=== PATIENT | female | born 1965 | race Caucasian/White ===

== ENCOUNTER 2020-02-16 11:27 | Emergency (ER) | payer MEDICAID, SELFPAY ==
[2020-02-16 11:35] VITALS: BP 126/83; PULSE 100; RESP 16; TEMP 36.8; O2SAT 97; BMI 39.9
--- NOTE | 2020-02-16 11:54 | XR_ITS ---
WS: [id number] LEFT SHOULDER: 3 VIEW(S) TECHNIQUE: Internal and external rotation with Y view. HISTORY: fall, shoulder pain COMPARISON: None available. No fracture or dislocation or soft tissue abnormality. Mild narrowing of the AC joint. XR/XR shoulder LT min 2V* 19782 IMPRESSION: Mild AC joint arthritis. No fracture identified.
[2020-02-16 11:55] VITALS: BP 141/81; PULSE 78; RESP 18; O2SAT 99
--- NOTE | 2020-02-16 12:53 | W.ED.EXTPRO ---
HPI - Extremity Problem General: Chief complaint: Extremity Injury, Upper Stated complaint: Shoulder Pain Time Seen by Provider: 02/16/20 11:49 History of Present Illness: HPI Narrative: 54-year-old female patient presents to the emergency department due to left shoulder pain. She reports sustained a fall last night, tripped over an object in the floor, hit the wall with her left shoulder and has experienced pain since. She reports [id number] use of ibuprofen. Has not helped with pain. She reports was able to move her left arm but with significant pain. She reports recent neck surgery, October 2019, cervical fusion, she denies neck pain upon exam. MD Complaint: joint pain (Left shoulder) Onset (ago): hour(s) (Approximately 12 hours) Pain Consistency: constant Location: left and upper extremity Severity scale (1-10): 8 Quality: aching, sharp and constant Radiation: none Relieving factors: nothing Exacerbating factors: range of motion Associated symptoms: Reports no associated symptoms; Deny chest pain, fever(s) or rash Review of Systems General: Reports: 10 or more systems reviewed and unremarkable except in HPI and below Const: Denies: fever(s), chills, body aches or diaphoresis Eyes: Denies: blurry vision or eye redness ENMT: Denies: throat pain, dental pain or disequilibrium Card: Denies: chest pain, palpitations or irregular heart rhythm Resp: Denies: dyspnea, productive cough, non-productive cough or wheezing GI: Denies: abdominal pain, nausea or vomiting : Denies: difficulty voiding or dysuria Musc: Reports: extremity pain (Left upper extremity, shoulder) and joint pain (Left upper extremity shoulder); Denies: neck pain or back pain Skin/Breast: Denies: rash or pruritus Neuro: Denies: headache(s), weakness in extremities or behavioral changes Psych: Denies: anxiety or depression Durga/Lymph: Denies: easy bruising Physical Exam Const: COMMON NORMALS: no acute distress, patient oriented x3, healthy appearing and alert GENERAL APPEARANCE: cooperative, comfortable and well hydrated HENMT: COMMON NORMALS: normocephalic, Normal external nose present and moist oral mucous membranes HEAD & SCALP: normocephalic NOSE: Normal external nose present Eye: COMMON NORMALS: Equal, round and reactive pupils present and EOMs intact bilaterally GENERAL EYE: appearance normal, both eyes and all related structures PUPIL: Yes Equal, round and reactive pupils present Neck/C-Spine: COMMON NORMALS: full ROM and no lymphadenopathy GENERAL: Yes normal visual inspection and Yes trachea midline CERVICAL SPINE: Yes cervical ROM normal (Scar noted to the right anterior neck), No Cervical spine tenderness, No Paracervical muscle tenderness and Yes Trapezius muscle tenderness left Lymph: LYMPHATIC: no lymphadenopathy noted Chest: COMMONS NORMALS: normal inspection of the chest Resp: COMMON NORMALS: normal respiratory effort and clear to auscultation bilaterally EFFORT & INSPECTION: Yes able to speak in complete sentences AUSCULTATION: clear to auscultation bilaterally Cardio: COMMON NORMALS: regular rhythm, S1 normal heart sound present, S2 normal heart sound present and Peripheral pulses 2+ throughout RHYTHM: regular rhythm HEART SOUNDS: S1 normal heart sound present and S2 normal heart sound present PERIPHERAL PULSES: Peripheral pulses 2+ throughout GI: COMMON NORMALS: Soft to palpation and non-tender INSPECTION: Yes normal to inspection PALPATION: Yes Soft to palpation : COMMON NORMALS: Yes no CVA tenderness BLADDER/KIDNEY EXAM: Yes no CVA tenderness Back/Pelvis: COMMON NORMALS: no CVA tenderness and thoracic and lumbar spine normal to inspection Extremity: COMMON NORMALS: normal to inspection and capillary refill normal GENERAL: Yes normal exam except as noted LEFT UPPER EXTREMITY: Yes shoulder joint Left shoulder joint: Yes inspection (No contusion or discoloration noted, negative edema noted.), Yes palpation (Pain to posterior acromion process, along trapezius), Yes ROM (Limited secondary to pain) and Yes neurovascular exam (Intact) LEFT LOWER EXTREMITY: Yes lower leg (Lateral contusion noted, ecchymosis, reports occurred during fall, able ambulate bilateral lower extremities without difficulty) Neuro: COMMON NORMALS: patient oriented x3 and no focal motor deficits SENSORIUM/ORIENTATION: Yes alert Psych: COMMON NORMALS: mental status grossly normal, Normal thought process present and cooperative ACTIVITY/MOTOR BEHAVIOR: Yes appropriate eye contact THOUGHT PROCESS: Normal thought process present Skin: COMMON NORMALS: no rashes or lesions noted and turgor normal GENERAL SKIN EXAM: no rashes or lesions noted and turgor normal Course ED course: 54-year-old female patient presents to the emergency department after she sustained a fall. She is complaining of left shoulder pain, left shoulder x-ray did not reveal fracture, she did not have cervical spine point tenderness, pain was localized to the posterior shoulder. Hydrocodone administered here in the ED along with Zofran due to nausea. Pain did improve, she was prescribed naproxen and arm sling, advised need to follow-up with primary care physician in 5 to 7 days if shoulder pain continued. She verbalized understanding. Vital Signs: Vital signs: Vital Signs Temperature 98.2 F 02/16/20 11:35 Pulse Rate 78 02/16/20 11:55 Respiratory Rate 18 02/16/20 11:55 Blood Pressure 141/81 02/16/20 11:55 Pulse Oximetry 99 02/16/20 11:55 MDM - Extremity (Nontraumatic) Imaging Data^: Xray Ortho: Radiologist's impression: [address] [address] XRay Report Signed Patient: Yissel Dunn Unit #: [id number] : [id number] Age/Sex: 54 / F ADM Date: 02/16/20 Loc: ER Room/Bed: Attending Dr: Ordering Provider/Ordering MD: Gerri Dobbs Date of Service: 02/16/20 Procedure(s): XR shoulder LT min 2V* [id number] Accession Number(s): [id number] Report Number: [id number] WS: [id number] LEFT SHOULDER: 3 VIEW(S) TECHNIQUE: Internal and external rotation with Y view. HISTORY: fall, shoulder pain COMPARISON: None available. No fracture or dislocation or soft tissue abnormality. Mild narrowing of the AC joint. XR/XR shoulder LT min 2V* [id number] IMPRESSION: Mild AC joint arthritis. No fracture identified. Dictated By: Hortensia Mcclellan DO Signed By: Hortensia Mcclellan DO Signed Date/Time: 02/16/201249 DD/ 49 Discharge Plan Discharge Patient Disposition: Home Clinical Impression: Fall against object Contusion of left shoulder Qualifiers: Encounter type: initial encounter Qualified Code(s): S40.012A - Contusion of left shoulder, initial encounter Condition: Stable Prescriptions: New naproxen 500 mg tablet 500 mg PO BID PRN (Reason: pain) Qty: 20 RF: 0 Discharge Orders: Discharge Order (Routine); Ordered 02/16/20 Ordered By: Gerri Dobbs Discharge Diet: Usual diet Discharge Activity: Limit activity as instructed and Return to work/school after cleared by PCP/Specialist Patient Instructions: Contusion in Adults (ED), Shoulder Sprain (ED), Sling - Wearing Activity Restrictions/Additional Instructions: Wear shoulder sling to help with left shoulder pain Take naproxen with food, do not use any jsrp-aji-[id number] medication with exception of Tylenol as needed for pain, as duplicate therapy can occur Follow-up with your primary care provider for left shoulder pain in 5 to 7 days if not improved -like cool compresses to the area to help with pain Return to the emergency department if you develop chest pain, left arm numbness and tingling, swelling of the left arm, or weakness of the upper extremities Coding Level of Care Code ED Informal Waiter/Waitress for Jorge A Fwd Exam Comprehensive
[2020-02-16] MEDS: HYDROcodone-acetaminophen 5-325 mg Tablet 1 TAB PO (13:26)
[2020-02-16] MEDS: ondansetron 4 MG Tablet PO (13:26)
[2020-02-16 13:36] VITALS: BP 136/87; PULSE 83; RESP 17; O2SAT 100
== END 2020-02-16 13:30 | disposition home or self-care (01) ==
PROVIDERS: Emergency Provider Nurse Practitioner Family
DX: S40.012A Contusion of left shoulder, initial encounter (principal); W18.09XA Striking against other object with subsequent fall, initial encounter
CPT/HCPCS: 12345; 73030; 99281; 99283; Q0162

== ENCOUNTER 2020-10-16 13:22 | Emergency (ER) | payer MEDICAID, SELFPAY ==
[2020-10-16] VITALS (8 sets, daily range): BP systolic 113–142; BP diastolic 65–86; PULSE 76–84; RESP 16–20; TEMP 36.6; O2SAT 96–99; BMI 40.3
--- NOTE | 2020-10-16 14:04 | CTR_ITS ---
PROCEDURE INFORMATION: Exam: CT Head Without Contrast Exam date and time: 10/16/2020 3:11 PM Age: 55 years old Clinical indication: Pain; Headache; Additional info: Headache x this am TECHNIQUE: Imaging protocol: Computed tomography of the head without contrast. Axial, coronal and sagittal reformatted images were created and reviewed. Radiation optimization: All CT scans at this facility use at least one of these dose optimization techniques: automated exposure control; mA and/or kV adjustment per patient size (includes targeted exams where dose is matched to clinical indication); or iterative reconstruction. COMPARISON: No relevant prior studies available. RADIATION DOSE METRICS: Total DLP (mGy-cm): 949.9 FINDINGS: Brain: No CT evidence of acute intracranial hemorrhage or acute territorial infarction. No significant mass effect or midline shift. Basal cisterns patent. Cerebral ventricles: Normal in size and configuration. Paranasal sinuses: Minimal ethmoid mucosal thickening. Mastoid air cells: Grossly unremarkable. Bones/joints: No acute osseous abnormality. Soft tissues: Grossly unremarkable. CT/CT head wo con* [id number]: 1[address] No CT evidence of acute intracranial pathology. 2. Additional findings, as above. Radiation Dose CTDIVOL = (mGy): DLP = 949.9 (mGy-cm)
--- NOTE | 2020-10-16 14:04 | ED_ITS ---
HPI - Neuro Symptoms/Deficit General: Chief Complaint: Neuro Symptoms/Deficit Stated Complaint: NEURO SYMPTOMS:FACE/R EYE SWELLING,NAUSEA Time Seen by Provider: 10/16/20 14:01 History of Present Illness: HPI Narrative: This patient is a 55-year-old female who presents to the emergency department for profound dizziness. Patient has a history of dizziness and had to have neck surgery for the same. Patient had a pinched nerve in her neck causing the balance issues. Patient states that was sometime ago and has not really had much issues over that other than some mild dizziness from time to time. States this morning on waking having profound dizziness and issues with the right I like it she had a pulling. Patient states has never been this bad before. Will do medical evaluation treat as needed otherwise patient has no other neurological symptoms. Associated symptoms: Reports vertigo; Deny chest pain, headache(s), nausea or vomiting Review of Systems General: Reports: 10 or more systems reviewed and unremarkable except in HPI and below Const: Denies: fever(s), chills, body aches or fatigue Eyes: Denies: change in vision or blurry vision ENMT: Denies: throat pain, hoarseness or mouth pain Card: Denies: chest pain, palpitations, irregular heart rhythm, edema, swelling of feet/ankles or lightheadedness Resp: Denies: dyspnea, productive cough, non-productive cough, wheezing or pain on inspiration GI: Denies: abdominal pain, nausea or vomiting : Denies: flank pain, difficulty voiding, dysuria, urinary frequency, urinary urgency or urinary hesitancy Musc: Denies: neck pain, back pain, extremity pain, extremity swelling, joint pain, joint swelling, joint redness, joint warmth or limited range of motion Skin/Breast: Denies: rash, pruritus, erythema or skin tenderness Neuro: Reports: dizziness and vertigo; Denies: headache(s), numbness in extremities or weakness in extremities Psych: Denies: anxiety or depression Physical Exam Const: COMMON NORMALS: no acute distress, average body habitus, patient oriented x3, no limitations, healthy appearing, alert and well nourished ORIENTATION/CONSCIOUSNESS: Yes oriented to person, Yes oriented to place and Yes oriented to time HENMT: COMMON NORMALS: normocephalic, atraumatic, hearing grossly normal bilaterally, external ears normal, EAC's normal, TM's normal bilaterally, Normal external nose present, Normal nasal mucous membranes and turbinates present, moist oral mucous membranes, oropharynx normal, dentition normal and gingiva normal HEAD & SCALP: normocephalic and atraumatic NOSE: Normal external nose present and Normal nasal mucous membranes and turbinates present EXTERNAL EAR: Yes external ears normal EXTERNAL AUDITORY CANAL: EAC's normal TYMPANIC MEMBRANE: TM's normal bilaterally Neck/C-Spine: COMMON NORMALS: full ROM, no lymphadenopathy, supple, no meningeal signs, no JVD, Thyroid normal and No carotid bruits THYROID: Thyroid normal Chest: COMMONS NORMALS: normal inspection of the chest, normal palpation of entire chest wall, normal inspection of the breasts and normal palpation of the breasts Breast/axilla inspection: Yes normal inspection of the breasts BREAST/AXILLA PALPATION: Yes normal palpation of the breasts Resp: COMMON NORMALS: normal respiratory effort, No retractions, No use of accessory muscles, clear to auscultation bilaterally and percussion normal AUSCULTATION: clear to auscultation bilaterally PERCUSSION: percussion normal Cardio: COMMON NORMALS: no JVD, regular rate, regular rhythm, S1 normal heart sound present, S2 normal heart sound present, No gallops present (Cardio), No clicks present (Cardio), No murmurs present (Cardio), No rub (Cardio) and Peripheral pulses 2+ throughout RATE: regular rate RHYTHM: regular rhythm HEART SOUNDS: S1 normal heart sound present and S2 normal heart sound present PERIPHERAL PULSES: Peripheral pulses 2+ throughout GI: COMMON NORMALS: Normal to inspection, nondistended, normoactive bowel sounds present, Soft to palpation, non-tender, No hepatosplenomegaly present, no masses and no bruits PALPATION: Yes Soft to palpation and Yes No hepatosplenomegaly present : COMMON NORMALS: Yes no CVA tenderness BLADDER/KIDNEY EXAM: Yes no CVA tenderness Back/Pelvis: COMMON NORMALS: no CVA tenderness, thoracic and lumbar spine normal to inspection, no thoracic nor lumbar tenderness, thoraco-lumbar ROM normal and straight leg raise negative bilaterally Extremity: COMMON NORMALS: normal to inspection, full ROM, capillary refill normal, no joint enlargement, no clubbing, cyanosis or edema, no calf tenderness and no pedal edema Neuro: COMMON NORMALS: patient oriented x3 SENSORIUM/ORIENTATION: Yes aler t, Yes oriented to person, Yes oriented to place and Yes oriented to time MENINGEAL SIGNS: Yes no meningeal signs CRANIAL NERVES: Yes CN normal except as noted COORDINATION/BALANCE: sgetvy-iz-koum test normal SPEECH: speech normal GAIT: Yes Normal gait present SENSORY EXAM: Yes extremities COORDINATION: [id number]-qs-[id number] test normal Course Reevaluation(s): Reevaluation #1: Patient states dizziness is much improved. We did discuss at length with patient about CT scanner being down. Patient request to wait and requested to have a CT scan of her head. We will continue to monitor the patient Time: 16:04 Vital Signs: Vital signs: Vital Signs Temperature 97.9 F 10/16/20 13:47 Pulse Rate 81 10/16/20 16:43 Respiratory Rate 20 H 10/16/20 16:43 Blood Pressure 131/79 10/16/20 16:43 Pulse Oximetry 99 10/16/20 16:43 MDM - Neuro Symptoms/Deficit MDM Narrative: Medical decision making narrative: Negative evaluation in the emergency department. CT scans negative. Patient does have chronic vertigo and does take meclizine at home per her neurologist. Patient requested CT scans and they were negative. Patient meclizine given in the ER and has much improved her symptoms. Patient is discharged home Imaging Data^: CT Head: Attestation: I personally reviewed and interpreted this imaging study as follows: Radiologist's impression: FINDINGS: Brain: No CT evidence of acute intracranial hemorrhage or acute territorial infarction. No significant mass effect or midline shift. Basal cisterns patent. Cerebral ventricles: Normal in size and configuration. Paranasal sinuses: Minimal ethmoid mucosal thickening. Mastoid air cells: Grossly unremarkable. Bones/joints: No acute osseous abnormality. Soft tissues: Grossly unremarkable. CT/CT head wo con* [id number] IMPRESSION: 1. No CT evidence of acute intracranial pathology. 2. Additional findings, as above. Discharge Plan Discharge Condition: Stable Prescriptions: New meclizine 25 mg tablet 12.5 mg PO DAILY PRN (Reason: dizziness) Qty: 10 RF: 0 No Action atorvastatin 40 mg Tablet 40 mg PO DAILY RF: 0 Effexor XR 75 mg Capsule,Extended Release 24hr 75 mg PO DAILY RF: 0 aspirin 325 mg Tablet 325 mg PO DAILY RF: 0 tizanidine 4 mg Tablet 8 mg PO BEDTIME RF: 0 Prilosec 40 mg Capsule,Delayed Release(Dr/Ec) 40 mg PO BID RF: 0 estradiol 2 mg Tablet 2 mg PO DAILY RF: 0 lisinopril-hydrochlorothiazide 10-12.5 mg Tablet 1 tab PO DAILY RF: 0 Discharge Orders: Discharge ED (Routine); Ordered 10/16/20 Ordered By: Kavon Rees Discharge Diet: Advance as tolerated Discharge Activity: Resume usual activity Activity Restrictions/Additional Instructions: Take medications as instructed. Follow-up with PCP in 2 to 3 days. Coding Level of Care Code ED Temperature Regulator for Marlyng Fwd Exam Comprehensive
--- NOTE | 2020-10-16 14:04 | CTR_ITS ---
PROCEDURE INFORMATION: Exam: CT Cervical Spine Without Contrast Exam date and time: 10/16/2020 3:11 PM Age: 55 years old Clinical indication: Prior surgery; Surgery date: 6+ months; Patient HX: Neck pain and headache x this am; Additional info: Trauma TECHNIQUE: Imaging protocol: Computed tomography images of the cervical spine without contrast. Axial, coronal and sagittal reformatted images were created and reviewed. Radiation optimization: All CT scans at this facility use at least one of these dose optimization techniques: automated exposure control; mA and/or kV adjustment per patient size (includes targeted exams where dose is matched to clinical indication); or iterative reconstruction. COMPARISON: No relevant prior studies available. RADIATION DOSE METRICS: Total DLP (mGy-cm): 767.9 FINDINGS: Bones/joints: Straightening of the normal cervical lordosis. Status post C4-C6 ACDF. No CT evidence of acute fracture, dislocation or subluxation. Alignment anatomic. Vertebral body heights maintained. Discs/Spinal canal/Neural foramina: Mild multilevel degenerative changes, characterized by disc space narrowing, osteophytosis and uncovertebral and facet joint hypertrophy. No significant spinal canal or neural foraminal stenosis. Lungs: Grossly unremarkable. Soft tissues: Grossly unremarkable. CT/CT cervical spin wo con* [id number]ION: 1. No CT evidence of acute cervical spine traumatic injury. 2. Additional findings, as above. Radiation Dose CTDIVOL = (mGy): DLP = 767.9 (mGy-cm)
[2020-10-16] MEDS: meclizine 25 mg tablet PO (14:10)
--- NOTE | 2020-10-16 16:22 | PC.NURSE ---
Pt in CT
--- NOTE | 2020-10-18 11:00 | DCPLANNER ---
manager information had message to speak with patient about getting established with a primary care physician. manager information called phone number , unable to speak with patient at this time. manager information unable to leave a voicemail for patient due to no voicemail box set up.
== END 2020-10-16 17:38 | disposition home or self-care (01) ==
PROVIDERS: Emergency Provider Emergency Medicine
DX: R42 Dizziness and giddiness (principal); Z79.82 Long term (current) use of aspirin
CPT/HCPCS: 70450; 72125; 99284; J8597

== ENCOUNTER 2021-01-13 20:34 | Emergency (ER) | payer MEDICAID, SELFPAY ==
[2021-01-13 20:58] VITALS: BP 157/91; PULSE 102; RESP 18; TEMP 37.9; O2SAT 98; BMI 37.5
[2021-01-13 21:09] VITALS: BP 129/76; PULSE 98; RESP 18; O2SAT 100
--- NOTE | 2021-01-13 21:30 | XRR_ITS ---
PROCEDURE INFORMATION: Exam: XR Chest Exam date and time: 01/13/2021 9:30 PM Age: 55 years old Clinical indication: Fever TECHNIQUE: Imaging protocol: XR of the chest. Views: 1 view. COMPARISON: CT cervical spin wo con* [id number] 10/16/2020 4:16 PM FINDINGS: Lungs: There are hazy opacities at the left lung base. Pleural spaces: Unremarkable. No pleural effusion. No pneumothorax. Heart/Mediastinum: Unremarkable. No cardiomegaly. Bones/joints: There are postoperative changes in the cervical spine. XR/XR chest 1V portable [id number] IMPRESSION: There are hazy opacities at the left lung base. These are nonspecific. Pneumonia cannot be excluded.
--- NOTE | 2021-01-13 21:31 | ED_ITS ---
HPI - Fever General: Chief Complaint: Fever Stated Complaint: Covid Symptoms Time Seen by Provider: 01/13/21 21:12 History of Present Illness: HPI Narrative: She states she has been sick with cold-like symptoms for 3 weeks. Was recently treated for sinusitis and she said that it did not help her at all says she is lost taste smell , has muscle aches and denies nausea vomiting. MD elicited complaint: fever and other (Muscle aches) Onset (ago): week(s) Exacerbating factors: nothing Relieving factors: nothing Associated symptoms: Reports headache(s), myalgias and short of breath; Deny abdominal pain, chills, chest pain, extremity pain, nasal congestion, nausea or vomiting Review of Systems Const: Reports: fever(s) and body aches; Denies: chills Eyes: Denies: change in vision or blurry vision ENMT: Denies: throat pain or nasal congestion Card: Denies: chest pain or dyspnea on exertion Resp: Reports: dyspnea; Denies: productive cough or non-productive cough GI: Denies: abdominal pain, nausea or vomiting Musc: Denies: extremity pain Skin/Breast: Denies: rash Neuro: Reports: headache(s) Psych: Denies: anxiety or depression Durga/Lymph: Denies: easy bruising PFSH ED PFSH: Medical History (Updated 01/13/21 @ 22:44 by IRASEMA Cueva) Acute bacterial sinusitis Lumbar disc herniation Shortness of breath Surgical History (Updated 01/04/21 @ 09:31 by IRASEMA Echevarria) H/O cervical spine surgery S/p total knee replacement, bilateral Physical Exam Const: COMMON NORMALS: no acute distress, average body habitus and patient oriented x3 HENMT: COMMON NORMALS: normocephalic HEAD & SCALP: normal to inspection and normocephalic FACE & SINUS: normal facial exam Eye: COMMON NORMALS: conjunctivae normal GENERAL EYE: appearance normal, both eyes and all related structures CONJUNCTIVA: Yes conjunctivae normal Neck/C-Spine: COMMON NORMALS: no JVD Chest: COMMONS NORMALS: normal inspection of the chest Resp: COMMON NORMALS: normal respiratory effort and clear to auscultation bilaterally AUSCULTATION: clear to auscultation bilaterally Cardio: COMMON NORMALS: no JVD, regular rate and regular rhythm RATE: regular rate RHYTHM: regular rhythm GI: COMMON NORMALS: Normal to inspection, nondistended, normoactive bowel sounds present Extremity: COMMON NORMALS: normal to inspection and full ROM Neuro: COMMON NORMALS: patient oriented x3 Course Vital Signs: Vital signs: Vital Signs Temperature 100.2 F H 01/13/21 20:58 Pulse Rate 98 01/13/21 21:09 Respiratory Rate 18 01/13/21 21:09 Blood Pressure 129/76 01/13/21 21:09 Pulse Oximetry 100 01/13/21 21:09 MDM - Fever MDM Narrative: Medical decision making narrative: Covid positive. Patient said she has had symptoms for 3 weeks. Explained to patient chest x-ray looks good CBC looks good she not eligible patient for general on. Encourage her to take Tylenol ibuprofen for discomfort follow-up with primary care provider as needed. Lab Data: Labs: Lab Results 01/13/21 01/13/21 01/13/21 Range/Units 21:37 21:37 21:56 WBC 6.4 (4.0-10.0) 10^3/ uL RBC 4.64 (4.1-5.3) 10^6/u L Hgb 13.8 (11.5-15.3) g/dL Hct 40.9 (37.0-47.0) % MCV 88.1 (81-99) fl MCH 29.7 (28.0-34.0) pg MCHC 33.7 (30.0-36.0) g/dL RDW 12.7 (12.1-15.1) % Plt Count 193 (130-400) 10^3/c mm MPV 11.4 H (7.4-10.4) fL Neut % (Auto) 61.6 % Lymph % (Auto) 30.9 % [place] % (Auto) 6.7 % Eos % (Auto) 0.2 % Baso % (Auto) 0.3 % Neut # (Auto) 3.97 (1.8-7.7) 10^3/u L Lymph # (Auto) 2.0 (0.8-4.8) 10^3/u L [place] # (Auto) 0.4 (0.2-0.9) 10^3/u L Eos # (Auto) 0.0 (0.0-0.8) 10^3/u L Baso # (Auto) 0.0 (0.0-0.1) 10^3/u L Nucleated RBC % (a uto) 0 % Nucleated RBCs # 0.0 /100WBC Influenza Type A A g Negative (Negative) Influenza Type B A g Negative (Negative) SARS-CoV-2 Ag (Rap id) Positive H (Negative) Discharge Plan Discharge Patient Disposition: Home Clinical Impression: COVID-19 Condition: Stable Prescriptions: No Action dexamethasone 6 mg tablet 6 mg PO DAILY 7 Days Qty: 7 RF: 0 amoxicillin-pot clavulanate [Augmentin] 875-125 mg tablet 1 tab PO BID 7 Days Qty: 14 RF: 0 albuterol sulfate [ProAir HFA] 90 mcg/actuation HFA aerosol inhaler 2 inh inhalation Q6H PRN (Reason: shortness of breath or wheezing) 30 Days Qty: 8.5 RF: 2 atorvastatin 40 mg Tablet 40 mg PO DAILY RF: 0 Effexor XR 75 mg Capsule,Extended Release 24hr 75 mg PO DAILY RF: 0 aspirin 325 mg Tablet 325 mg PO DAILY RF: 0 tizanidine 4 mg Tablet 8 mg PO BEDTIME RF: 0 Prilosec 40 mg Capsule,Delayed Release(Dr/Ec) 40 mg PO BID RF: 0 estradiol 2 mg Tablet 2 mg PO DAILY RF: 0 lisinopril-hydrochlorothiazide 10-12.5 mg Tablet 1 tab PO DAILY RF: 0 meclizine 25 mg tablet 12.5 mg PO DAILY PRN (Reason: dizziness) Qty: 10 RF: 0 Discharge Orders: Discharge ED (Routine); Ordered 01/13/21 Ordered By: Darek Horner Discharge Diet: Usual diet Discharge Activity: Increase activity as tolerated Patient Instructions: Viral Syndrome (ED) Activity Restrictions/Additional Instructions: Drink plenty of fluids. Can take Tylenol and/or ibuprofen for discomfort. Follow-up your primary care provider as needed. Coding Level of Care Code ED Supervisor [employer] for Jorge A Fwsusana Exam Comprehensive
[2021-01-13 22:10] LABS: Basophils % 0.3 %; Eosinophils % 0.2 %; Hematocrit 40.9 % (37.0-47.0); Hemoglobin 13.8 g/dL (11.5-15.3); Lymphocytes % 30.9 %; Mean Corpuscular HGB Conc 33.7 g/dL (30.0-36.0); Mean Corpuscular Hemoglobin 29.7 pg (28.0-34.0); Mean Corpuscular Volume 88.1 fl (81-99); Mean Platelet Volume 11.4 fL (7.4-10.4); Monocytes # 0.4 10^3/uL (0.2-0.9); Monocytes % 6.7 %; Neutrophils # 3.97 10^3/uL (1.8-7.7); Neutrophils % 61.6 %; Nucleated Red Blood Cells % 0 %; Platelet Count 193 10^3/cmm (130-400); Red Blood Count 4.64 10^6/uL (4.1-5.3); Red Cell Distribution Width 12.7 % (12.1-15.1); White Blood Count 6.4 10^3/uL (4.0-10.0)
[2021-01-13 22:27] LABS: SARS Covid-2 Antigen Positive (Negative)
[2021-01-13 22:28] LABS: Influenza A by IFA Negative (Negative); Influenza B by IFA Negative (Negative)
[2021-01-13 23:00] VITALS: BP 133/66; PULSE 99; RESP 18; O2SAT 98
--- NOTE | 2021-01-13 23:13 | ECG_ITS ---
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
== END 2021-01-13 23:01 | disposition home or self-care (01) ==
PROVIDERS: Emergency Provider Nurse Practitioner Family
DX: U07.1 COVID-19 (principal); Z79.82 Long term (current) use of aspirin
CPT/HCPCS: 71045; 85025; 87426; 87804; 93005; 99283

== ENCOUNTER → 2021-06-20 11:33 | Outpatient (BNVA) | payer MEDICAID, SELFPAY | PROVIDERS: PCP Nurse Practitioner Family; Visit Provider Nurse Practitioner Family | DX: I10 Essential (primary) hypertension (principal); Z13.6 Encounter for screening for cardiovascular disorders; Z79.899 Other long term (current) drug therapy; E55.9 Vitamin D deficiency, unspecified; E78.2 Mixed hyperlipidemia; F32.A Depression, unspecified; E89.40 Asymptomatic postprocedural ovarian failure; E66.9 Obesity, unspecified; Z90.710 Acquired absence of both cervix and uterus | CPT/HCPCS: 80053; 80061; 81003; 82306; 83036; 84439; 84443; 85025 ==

== ENCOUNTER 2021-09-02 14:00 | Outpatient (CLI) | payer MEDICAID, SELFPAY ==
--- NOTE | 2021-09-02 14:30 | MM_ITS ---
WS: [email or web address] BILATERAL 3D TOMOSYNTHESIS DIGITAL SCREENING MAMMOGRAPHY WITH CAD CLINICAL INFORMATION: Z12.31 - Encounter for screening mammogram for malignant ... HISTORY: Screening mammogram. No current complaints. COMPARISON: July 07, 2018 TECHNIQUE: Bilateral CC and MLO views. FINDINGS: Scattered fibroglandular densities bilaterally. A few incidental punctate calcifications are stable. Slightly spiculated asymmetric density along the posterior nipple line LEFT breast best seen on the M LO view measuring 7 mm is more prominent compared to previous. Recommend further evaluation with LEFT breast diagnostic mammography spot compression views and ultrasound. RIGHT breast is unremarkable and unchanged. IMPRESSION: MM/[place] [id number] BI-RADS: 0-Incomplete: Need additional imaging evaluation FOLLOW UP: Need Additional Imaging Recommend further evaluation with LEFT breast diagnostic mammography spot compr ession views and ultrasound.
== END 2021-09-02 14:01 | disposition home or self-care (01) ==
LOC: RAD 14:03
PROVIDERS: PCP Nurse Practitioner Family; Visit Provider Nurse Practitioner Family
DX: Z12.31 Encounter for screening mammogram for malignant neoplasm of breast (principal)
CPT/HCPCS: 77063; 77067

== ENCOUNTER 2021-09-24 10:20 | Outpatient (CLI) | payer MEDICAID, SELFPAY ==
--- NOTE | 2021-09-24 10:30 | MM_ITS ---
WS: [email or web address] LEFT 3D TOMOSYNTHESIS DIGITAL MAMMOGRAPHY WITH CAD CLINICAL INFORMATION: abnormal mammo COMPARISON: September 02, 2021 TECHNIQUE: 3 views of the left breast were obtained. FINDINGS: Scattered fibroglandular densities of the left breast. Stable slightly spiculated asymmetric density along the posterior nipple line LEFT breast measuring 7 mm. This appears less dense today and partial ly compresses out on the spot compression views. Ultrasound is pending. ULTRASOUND BREAST LEFT TECHNIQUE: Ultrasound left breast focused area of concern. CLINICAL INFORMATION: abnormal mammo COMPARISON: None. FINDINGS: Ultrasound LEFT breast at the 12 and 1:00 positions at the nipple. Dense underlying parenchymal tissu e. Incidental tiny cyst at the 12:00 position measuring 6 x 7 mm. Fibrocystic changes. No suspicious lesions to target for biopsy. MM/[place] [id number] IMPRESSION: BI-RADS: 2-Benign FOLLOW UP: 1 Year Follow-up Recommend return to annual screening mammography.
== END 2021-09-24 10:21 | disposition home or self-care (01) ==
LOC: RAD 10:24
PROVIDERS: PCP Nurse Practitioner Family; Visit Provider Nurse Practitioner
DX: R92.8 Other abnormal and inconclusive findings on diagnostic imaging of breast (principal)
CPT/HCPCS: 76642; 77061

== ENCOUNTER 2022-12-24 15:26 | Outpatient (CLI) | payer MEDICAID, SELFPAY ==
--- NOTE | 2022-12-24 15:36 | MM_ITS ---
WS: [email or web address] BILATERAL 3D TOMOSYNTHESIS DIGITAL SCREENING MAMMOGRAPHY WITH CAD CLINICAL INFORMATION: SCREENING HISTORY: Screening mammogram. No current complaints. COMPARISON: 2021 TECHNIQUE: Bilateral CC and MLO views. FINDINGS: Scattered fibroglandular densities bilaterally. No suspicious focal mass, asymmetry, calcifications, or architectural distortion. No evidence of malignancy. IMPRESSION: MM/[place] [id number] BI-RADS: 1-Negative FOLLOW UP: 1 Year Follow-up Recommend return to annual screening mammography.
== END 2022-12-24 15:27 | disposition home or self-care (01) ==
LOC: RAD 15:30 → MOBLMAM 15:43
PROVIDERS: PCP Nurse Practitioner Family; Visit Provider Nurse Practitioner
DX: Z12.31 Encounter for screening mammogram for malignant neoplasm of breast (principal)
CPT/HCPCS: 77063; 77067

== ENCOUNTER → 2023-03-16 15:19 | Outpatient (BNVA) | payer MEDICAID, SELFPAY | PROVIDERS: PCP Nurse Practitioner Family; Visit Provider Nurse Practitioner Family | DX: R30.0 Dysuria (principal) | CPT/HCPCS: 81000 ==

== ENCOUNTER → 2023-03-19 10:14 | Outpatient (BNVA) | payer MEDICAID, SELFPAY | PROVIDERS: PCP Nurse Practitioner Family; Visit Provider Nurse Practitioner Family | DX: E66.9 Obesity, unspecified (principal) | CPT/HCPCS: 80053; 80061; 84439; 84443; 85025 ==

== ENCOUNTER → 2023-04-10 12:16 | Outpatient (BNVA) | payer MEDICAID, SELFPAY | PROVIDERS: PCP Nurse Practitioner Family; Visit Provider Nurse Practitioner Family | DX: R68.89 Other general symptoms and signs (principal) | CPT/HCPCS: 87400; 87426 ==

== ENCOUNTER → 2023-04-17 16:17 | Outpatient (BNVA) | payer MEDICAID, SELFPAY | PROVIDERS: PCP Nurse Practitioner Family; Visit Provider Nurse Practitioner Family | DX: R68.89 Other general symptoms and signs (principal); J22 Unspecified acute lower respiratory infection | CPT/HCPCS: 71046; 87426 ==

== ENCOUNTER → 2023-08-24 11:37 | Outpatient (BNVA) | payer MEDICAID, SELFPAY | PROVIDERS: PCP Nurse Practitioner Family; Visit Provider Nurse Practitioner Family | DX: Z20.2 Contact with and (suspected) exposure to infections with a predominantly sexual mode of transmission (principal) | CPT/HCPCS: 86592; 87491; 87591; 87806 ==

== ENCOUNTER 2024-05-13 13:23 | Outpatient (CLI) | payer BC, SELFPAY ==
[2024-05-13 13:58] LABS: Basophils # 0.1 10^3/uL (0.0-0.1); Basophils % 0.8 %; Eosinophils # 0.3 10^3/uL (0.0-0.8); Eosinophils % 3.2 %; Hematocrit 41.4 % (36-47); Lymphocytes # 2.5 10^3/uL (0.8-4.8); Lymphocytes % 32.9 %; Mean Corpuscular HGB Conc 32.9 g/dL (30-55); Mean Corpuscular Hemoglobin 28.6 pg (27-33); Mean Corpuscular Volume 87.2 fl (85-98); Mean Platelet Volume 11.6 fL (7.4-10.4); Monocytes # 0.4 10^3/uL (0.2-0.9); Monocytes % 4.8 %; Neutrophils # 4.47 10^3/uL (1.8-7.7); Nucleated Red Blood Cells % 0 %; Platelet Count 215 10^3/cmm (157-399); Red Blood Count 4.75 10^6/uL (3.85-5.65); Red Cell Distribution Width 12.9 % (12.1-15.1)
[2024-05-13 14:27] LABS: Estmated Average Glucose 82; Hemoglobin A1C 4.5 % (4.0-6.0)
[2024-05-13 14:31] LABS: Calcium 9.3 mg/dL (8.5-10.5)
[2024-05-13 14:38] LABS: Parathyroid Hormone 78.9 pg/mL (15-65)
[2024-05-13 14:42] LABS: 25 Hydroxy Vitamin D 24 ng/mL (30-100); Alanine Aminotransferase 20 U/L (0-33); Albumin Level 4.1 g/dL (3.5-5.2); Alkaline Phosphatase 112 U/L (35-105); Anion Gap 14.8 (5-19); Aspartate Amino Transferase 19 U/L (0-32); Blood Urea Nitrogen 13 mg/dL (6-20); Calcium 9.4 mg/dL (8.5-10.5); Carbon Dioxide 27 mmol/L (22-29); Chloride 105 mmol/L (98-107); Chol HDL Ratio 4.12 mg/dL (0.0-4.40); Cholesterol 210 mg/dL (0-200); Ferritin 220 ng/mL (15-150); Globulin 2.6 g/dL (1.3-4.6); Glomerular Filtration Rate 103.4 mL/min (90-130); Glucose 90 mg/dL (65-115); HDL Cholesterol 51 mg/dL (60-100); Iron 61 ug/dL (37-145); LDL Cholesterol Calculated 122 mg/dL (50-129); LDL HDL Ratio 2.39 RATIO (0.00-3.22); Magnesium 1.9 mg/dL (1.7-2.3); Osmolality Calculated 296 mOsm/kg (285-295); Percent Saturation 22.8 % (20-50); Phosphorus 3.9 mg/dL (2.5-4.5); Potassium 3.8 mmol/L (3.5-5.1); Sodium 143 mmol/L (136-145); Thyroid Stimulating Hormone 2.72 uIU/mL (0.27-4.20); Total Bilirubin 0.3 mg/dL (0.15-1.2); Total Iron Binding Capacity 267 mcg/dl; Total Protein 6.7 g/dL (6.6-8.7); Triglycerides 187 mg/dL (0-150); Unsaturated Iron Binding 206 ug/dL (112-347); Vitamin B12 421 pg/mL (232-1245)
[2024-05-16 11:40] LABS: Vitamin B1(Thiamin) Plas/Ser 7 nmol/L (8-30)
[2024-05-16 12:44] LABS: Vitamin A (Retinol) 46 mcg/dL (38-98)
[2024-05-16 12:55] LABS: Zinc Level, Serum or Plasma 72 mcg/dL (60-130)
[2024-05-16 19:29] LABS: Alpha-Tocopherol 13.3 mg/L (5.7-19.9)
== END 2024-05-13 13:24 | disposition home or self-care (01) ==
PROVIDERS: PCP Nurse Practitioner Family; Visit Provider Nurse Practitioner Family
DX: Z98.84 Bariatric surgery status (principal)
CPT/HCPCS: 36415; 80053; 80061; 82306; 82310; 82607; 82728; 82747; 83036; 83540; 83550; 83735; 83970; 84100; 84425; 84443; 84446; 84590; 84597; 84630; 85025

== ENCOUNTER 2024-07-01 13:56 | Outpatient (CLI) | payer BC, SELFPAY ==
--- NOTE | 2024-07-01 14:01 | XR_ITS ---
WS: [email or web address] Exam: XR foot LT min 3V* [id number] Date/Time of Exam: 07/01/2024 2:13 PM Reason For Exam: M19.072 - Primary osteoarthritis, left ankle and foot No fracture. The joints are relatively well-maintained. No soft tissue foreign bodies are noted. Large calcaneal spurs. XR/XR foot LT min 3V* [id number] IMPRESSION: 1. Large heel spurs. No other significant finding.
[2024-07-01 14:43] LABS: Bilirubin Urine Negative (Negative); Blood Urine Negative (Negative); Glucose Urine UA Negative (Normal); Ketones Urine Negative (Negative); Leukocyte Esterase Urine 1+ (Negative); Nitrate Urine Negative (Negative); Protein Urine Negative (Negative); Specific Gravity, Urine 1.005 (1.005-1.030); Urine Appearance Clear (CLEAR); Urine Color Yellow (Yellow); Urobilinogen Urine 0.2 mg/dL (Negative); pH Urine 5.5 (5-7)
[2024-07-01 14:57] LABS: Calcium 9.1 mg/dL (8.5-10.5)
[2024-07-01 15:16] LABS: 25 Hydroxy Vitamin D 27 ng/mL (30-100); Alanine Aminotransferase 20 U/L (0-33); Albumin Level 4.2 g/dL (3.5-5.2); Alkaline Phosphatase 114 U/L (35-105); Aspartate Amino Transferase 17 U/L (0-32); Blood Urea Nitrogen 12 mg/dL (6-20); Carbon Dioxide 24 mmol/L (22-29); Chloride 106 mmol/L (98-107); Chol HDL Ratio 4.11 mg/dL (0.0-4.40); Cholesterol 226 mg/dL (0-200); Ferritin 197 ng/mL (15-150); Globulin 2.4 g/dL (1.3-4.6); Glomerular Filtration Rate 86.6 mL/min (90-130); Glucose 120 mg/dL (65-115); HDL Cholesterol 55 mg/dL (60-100); Iron 76 ug/dL (37-145); LDL Cholesterol Calculated 142 mg/dL (50-129); LDL HDL Ratio 2.58 RATIO (0.00-3.22); Magnesium 1.8 mg/dL (1.7-2.3); Osmolality Calculated 293 mOsm/kg (285-295); Percent Saturation 26.3 % (20-50); Phosphorus 3.7 mg/dL (2.5-4.5); Sodium 141 mmol/L (136-145); Thyroid Stimulating Hormone 2.45 uIU/mL (0.27-4.20); Total Bilirubin 0.3 mg/dL (0.15-1.2); Total Iron Binding Capacity 288 mcg/dl; Total Protein 6.6 g/dL (6.6-8.7); Triglycerides 146 mg/dL (0-150); Unsaturated Iron Binding 212 ug/dL (112-347); Vitamin B12 911 pg/mL (232-1245)
[2024-07-01 15:39] LABS: Bacteria Urine TRACE /hpf; Hyaline Casts Urine 0-4 /lpf; RBC Urine 0-4 /hpf (0-2); Squamous Epithelial Cell Urine 0-4 /hpf (0-5); UA Manual Slide Review YES; UA Slide Review UA Slide Review Perf; WBC Urine 0-4 /hpf (0-5)
== END 2024-07-01 13:57 | disposition home or self-care (01) ==
LOC: RAD 13:58
PROVIDERS: PCP Nurse Practitioner Family; Visit Provider Nurse Practitioner Family
DX: M19.072 Primary osteoarthritis, left ankle and foot (principal); M77.32 Calcaneal spur, left foot; I10 Essential (primary) hypertension; E78.2 Mixed hyperlipidemia; Z98.84 Bariatric surgery status; Z79.899 Other long term (current) drug therapy; D64.9 Anemia, unspecified; E55.9 Vitamin D deficiency, unspecified; R39.9 Unspecified symptoms and signs involving the genitourinary system; Z20.2 Contact with and (suspected) exposure to infections with a predominantly sexual mode of transmission; N90.89 Other specified noninflammatory disorders of vulva and perineum
CPT/HCPCS: 73630; 80053; 80061; 81001; 82306; 82310; 82525; 82607; 82728; 82746; 83540; 83550; 83735; 83970; 84100; 84425; 84443; 84597; 84630; 86038; 86695; 86696

== ENCOUNTER → 2024-09-30 12:02 | Outpatient (BNVA) | payer BC, SELFPAY | PROVIDERS: PCP Nurse Practitioner Family; Referring Provider Nurse Practitioner Family; Visit Provider Internal Medicine | DX: E21.3 Hyperparathyroidism, unspecified (principal); E55.9 Vitamin D deficiency, unspecified | CPT/HCPCS: 36415; 82306; 82310; 83970 ==

== ENCOUNTER → 2024-10-05 16:31 | Outpatient (BNVA) | payer BC, SELFPAY | PROVIDERS: PCP Nurse Practitioner Family; Visit Provider Nurse Practitioner Family | DX: R07.9 Chest pain, unspecified (principal) | CPT/HCPCS: 84484 ==

== ENCOUNTER 2025-01-18 10:15 | Outpatient (CLI) | payer BC, MEDICAID, SELFPAY ==
--- NOTE | 2025-01-18 10:24 | XR_ITS ---
WS: [email or web address] Cervical spine, 7 views including both obliques, lateral views in flexion, extension and neutral position, 01/18/2025 Clinical Data: M50.30 - Other cervical disc degeneration, unspecified ce... Comparison: CT cervical spine, 10/16/2020 Findings: No compression fractures are seen. There is an anterior cervical disc fusion C4-C7 with disc spacers. The inferior screws have fractured and slightly. The oblique views show mild foraminal narrowing at C4-C5 and C5-C6. No instability occurs at flexion or extension. There is no prevertebral soft tissue swelling. The odontoid is unremarkable. The soft tissues of the neck and the lung apices are normal. XR/XR cervical spine min 6V [id number] Impression: 1. Anterior cervical disc fusion C4-C7 with disc spacers. 2. The inferior screws at C7 have fractured. 3. Mild foraminal narrowing at C4-C5 and C5-C6. 4. No instability on flexion or extension.
--- NOTE | 2025-01-18 10:24 | XR_ITS ---
WS: [email or web address] Right knee, 3 views, 01/18/2025 Clinical Data: M19.90 - Unspecified osteoarthritis, unspecified site Comparison: None. Findings: There is a right knee arthroplasty. No periprosthetic fractures or loosening is seen. The soft tissues are normal. XR/XR knee RT 3V* [id number] Impression: Right knee arthroplasty.
--- NOTE | 2025-01-18 10:24 | XR_ITS ---
WS: [email or web address] Left knee, 3 views, 01/18/2025 Clinical Data: M19.90 - Unspecified osteoarthritis, unspecified site Comparison: None. Findings: There is a knee arthroplasty. No periprosthetic fractures or loosening is seen. There is a calcification adjacent to the medial femoral condyle, probably from chronic trauma. The soft tissues are normal. XR/XR knee LT 3V* [id number] Impression: Left knee arthroplasty.
[2025-01-18 11:24] LABS: Hematocrit 40.2 % (36-47); Hemoglobin 13.40 g/dL (11.27-16.99); Mean Corpuscular HGB Conc 33.3 g/dL (30-55); Mean Corpuscular Hemoglobin 29.1 pg (27-33); Mean Corpuscular Volume 87.2 fl (85-98); Nucleated Red Blood Cells % 0 %; Platelet Count 211 10^3/cmm (157-399); Red Blood Count 4.61 10^6/uL (3.85-5.65); White Blood Count 6.05 10^3/uL (3.29-11.43)
[2025-01-18 11:48] LABS: Calcium 9.3 mg/dL (8.5-10.5)
[2025-01-18 12:12] LABS: Alanine Aminotransferase 12 U/L (0-33); Albumin Level 4.4 g/dL (3.5-5.2); Alkaline Phosphatase 109 U/L (35-105); Anion Gap 14.2 (5-19); Aspartate Amino Transferase 21 U/L (0-32); Blood Urea Nitrogen 7 mg/dL (6-20); Calcium 9.1 mg/dL (8.5-10.5); Carbon Dioxide 28 mmol/L (22-29); Chloride 105 mmol/L (98-107); Cholesterol 218 mg/dL (0-200); Globulin 2.6 g/dL (1.3-4.6); Glucose 86 mg/dL (65-115); HDL Cholesterol 60 mg/dL (60-100); Magnesium 2.1 mg/dL (1.7-2.3); Osmolality Calculated 293 mOsm/kg (285-295); Potassium 4.2 mmol/L (3.5-5.1); Sodium 143 mmol/L (136-145); Thyroid Stimulating Hormone 3.09 uIU/mL (0.27-4.20); Total Protein 7.0 g/dL (6.6-8.7); Triglycerides 134 mg/dL (0-150); Vitamin B12 863 pg/mL (232-1245)
[2025-01-18 13:17] LABS: Estmated Average Glucose 88; Hemoglobin A1C 4.7 % (4.0-6.0)
== END 2025-01-18 10:16 | disposition home or self-care (01) ==
LOC: LAB 10:18
PROVIDERS: PCP Nurse Practitioner Family; Visit Provider Nurse Practitioner Family
DX: M50.30 Other cervical disc degeneration, unspecified cervical region (principal); M19.90 Unspecified osteoarthritis, unspecified site; I10 Essential (primary) hypertension; E78.2 Mixed hyperlipidemia; E21.3 Hyperparathyroidism, unspecified; E55.9 Vitamin D deficiency, unspecified; Z98.84 Bariatric surgery status; Z79.899 Other long term (current) drug therapy
CPT/HCPCS: 36415; 72052; 73562; 80053; 80061; 82306; 82310; 82607; 82746; 83036; 83735; 83970; 84425; 84443; 85025

== ENCOUNTER → 2025-02-07 13:31 | Outpatient (BNVA) | payer BC, SELFPAY | PROVIDERS: PCP Nurse Practitioner Family; Visit Provider Orthopaedic Surgery | DX: M47.892 Other spondylosis, cervical region (principal); M54.12 Radiculopathy, cervical region | CPT/HCPCS: 72040 ==

== ENCOUNTER 2025-02-24 14:41 | Outpatient (CLI) | payer BC, SELFPAY ==
--- NOTE | 2025-02-24 15:15 | MR_ITS ---
WS: [email or web address] MRI CERVICAL SPINE NONCONTRAST TECHNIQUE: Sagittal T1, T2 and STIR imaging. Axial T2, gradient, and fiesta imaging. CLINICAL INFORMATION: neck pain/broken screw FINDINGS: Straightening of the normal cervical lordosis. ACDF C4-C6 with partial corpectomies and interbody fusion graft. Cervical screw fracture seen on the recent radiograph 02/07/2025 at C6 Cord signal is normal. No high-grade central canal stenosis. No evidence of prevertebral fluid collection or edema. C2-C3: Mild facet arthropathy. Spinal canal and foramen are patent. C3-C4: Mild disc bulge with endplate ridging. Slight anterolisthesis C3 on C4. Moderate facet arthropathy. Mild bilateral bony foraminal narrowing. C4-C5: Postoperative changes. Spinal canal is patent. Moderate facet arthropathy. Mild bilateral bony foraminal narrowing. C5-C6: Mild central canal stenosis. Postoperative changes. Moderate bilateral bony foraminal narrowing. Mild to moderate facet arthropathy. C6-C7: Postoperative changes. Mild disc bulge and endplate ridging. Spinal canal and foramen are patent. C7-T1: Slight anterolisthesis C7 on T1. Spinal canal and foramen are patent. Slight anterolisthesis T2 on T3. MR/MR cervical spin wo con* [id number] IMPRESSION: 1. Prior postoperative changes ACDF with corpectomy and interbody fusion graft C4-C6. 2. Previously described broken fixation screws at C6 better seen on the cervic al radiographs. No prevertebral fluid collections. 3. Cord signal is normal. No high-grade central canal stenosis. 4. Mild central canal stenosis C4-5 and C5-6. 5. Moderate bony foraminal narrowing C5-6 worse on the LEFT.
== END 2025-02-24 14:42 | disposition home or self-care (01) ==
PROVIDERS: PCP Nurse Practitioner Family; Visit Provider Orthopaedic Surgery
DX: M54.12 Radiculopathy, cervical region (principal); M43.22 Fusion of spine, cervical region; M99.61 Osseous and subluxation stenosis of intervertebral foramina of cervical region
CPT/HCPCS: 72141

== ENCOUNTER 2025-04-28 10:40 | Emergency (ER) | payer BC, SELFPAY ==
[2025-04-28 10:53] VITALS: BP 153/84; PULSE 68; RESP 18; TEMP 36.8; O2SAT 99
--- OUTSIDE RECORDS SUMMARY | 2025-04-28 10:57 | XMS_ITS | Clinical Summary ---
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 Role Phone Unavailable Primary Care Provider Unavailabl e Social History Tobacco Use Types Packs/Day Years Used Date Smoking Tobacco: Never Assessed Comments Unknown Sex and Gender Information Value Date Recorded Sex Assigned at Not on file Legal Sex Female 3:07 PM CDT Gender Identity Not on file Sexual Orientation Not on file Plan of Treatment Health Maintenance Due Date Last Done Comments Annual Wellness 1965 Hepatitis B Vaccines (1 of 3 - 19+ 3-dose series) 07/17/1986 Td, Tdap Vaccines Adult 07/17/1986 Pap Smear 07/17/1988 Mammogram 2007 Colonoscopy 07/17/2012 Pneumococcal Vaccine: 50+ Years (1 of 1 - PCV) 07/17/2017 Shingrix (ZOSTER RECOMBINANT ) (1 of 2) 07/17/2017 Influenza Vaccination (#1) 12/09/202403/05, 07/23/2019 HIB Vaccines Aged Out No longer eligi ble based on patient's age to complete this topic HPV Vaccines (No Doses Required) Completed Hepatitis A Vaccines Aged Out No long er eligible based on patient's age to complete this topic IPV Vaccines Aged Out No longer eligi ble based on patient's age to complete this topic Meningococcal Vaccines Aged Out No lo nger eligible based on patient's age to complete this topic RSV Mab Nirsevimab (Beyfortu s) <20 months Aged Out No longer eligible b ased on patient's age to complete this topic Rotavirus Vaccines Aged Out No longer eligible based on patient's age to complete this topic
--- NOTE | 2025-04-28 11:22 | XR_ITS ---
WS: [email or web address] Portable AP upright chest, 04/28/2025 Clinical Data: syncope Comparison: Two-view chest, 04/17/2023 Findings: No nodules, masses or effusions are seen. The heart is normal. The pulmonary vascularity is not increased. No pneumonia or pneumothorax is seen. There is an anterior cervical disc fusion. XR/XR chest 1V portable [id number] Impression: Negative chest.
--- NOTE | 2025-04-28 11:22 | ECG_ITS ---
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
[2025-04-28 11:37] LABS: Glucose Urine UA Negative (Normal); Nitrate Urine Negative (Negative); Specific Gravity, Urine 1.007 (1.005-1.030)
[2025-04-28 11:42] LABS: Add Urine Microscopic? YES
[2025-04-28 12:04] LABS: Hematocrit 39.6 % (36-47); Hemoglobin 12.90 g/dL (11.27-16.99); Mean Corpuscular HGB Conc 32.6 g/dL (30-55); Mean Corpuscular Hemoglobin 28.9 pg (27-33); Mean Corpuscular Volume 88.8 fl (85-98); Nucleated Red Blood Cells % 0 %; Platelet Count 202 10^3/cmm (157-399); Red Blood Count 4.46 10^6/uL (3.85-5.65); White Blood Count 7.47 10^3/uL (3.29-11.43)
--- NOTE | 2025-04-28 12:22 | CT_ITS ---
WS: [email or web address] CT scan of the arteries of the neck. Additional two-dimensional coronal and sagittal reconstruction was performed. MIP images were also performed. 04/28/2025 Clinical Data: vertigo, neck pain, syncope Comparison: None. DLP: 684.[address] scans at [facility] use at least one of these dose optimization techniques: automated exposure control; mA and/or kV adjustment per patient size (includes targeted exams where dose is matched to clinical indication); or iterative reconstruction. Findings: The common carotid arteries were normal. They bifurcate normally at the bifurcations. The internal and external carotid arteries show no abnormalities. The vertebral arteries are also normal. The visualized intracerebral circulation shows that the anterior and posterior arterial circulation was normal. The soft tissues of the neck and the lung apices are unremarkable. The cervical spine shows anterior cervical disc fusion at C4-C6. There is facet joint arthritis, osteoarthritis and degenerative disc narrowing. CT/CT angio neck [id number] Impression: Normal carotid and vertebral artery circulation.
--- NOTE | 2025-04-28 12:22 | CT_ITS ---
WS: [email or web address] CT cervical spine. Additional two-dimensional coronal and sagittal reconstruction was performed. 04/28/2025 Clinical Data: neck pain/injury? Comparison: CT cervical spine, 10/16/2020 DLP: 684.[address] scans at [facility] use at least one of these dose optimization techniques: automated exposure control; mA and/or kV adjustment per patient size (includes targeted exams where dose is matched to clinical indication); or iterative reconstruction. Findings: There is an anterior cervical disc fusion C4-C6. There is a corpectomy at C5. The inferior orthopedic screws at C6 have both fractured and there is slight anterior displacement of the plate at this level. Again there is multilevel degenerative change, facet joint arthritis and disc narrowing. The neural foramen and spinal canals are not narrow. No compression fractures or fractures of the cervical spine are seen. There is no prevertebral soft tissue swelling. The lung apices and soft tissues of the neck are unremarkable. CT/CT cervical spin wo con* [id number] Impression: 1. Anterior cervical disc fusion C4-C6. 2. Fracture of the inferior orthopedic screws at C6 with slight anterior displa cement of the fusion plate.
--- NOTE | 2025-04-28 12:23 | ED_ITS ---
HPI - Neck Pain/Injury 2 General: Chief Complaint: Syncope Stated Complaint: Fall L hip blacked out Time Seen by Provider: 04/28/25 11:49 Source: patient Mode of arrival: ambulatory Limitations: no limitations History of Present Illness: Patient is a 59-year-old female here with a main complaint that she believes is related to her neck. She states over the past 6 to 8 months she has been having episodes of vertigo and dizziness and presyncopal feelings. Also feels like she has periods where she stumbles around and attributes this to the symptoms listed. She feels like symptoms have been worse over the past 3 months. Reports multiple episodes daily lasting a few seconds. She states she had similar symptoms back in 2019 and ended up having an extensive neck surgery performed at [facility]. It sounds like she had a C4-C6 ACDF. Patient states her symptoms significantly improved after this and she has been asymptomatic up until 6 to 8 months ago. She was seen here back in our ED back in 2020 for similar symptoms. She has reportedly recently obtained MRI of her neck and has met with Dr. Jiménez who had recommended surgery. Patient states she then went to neurosurgery for a second opinion and they wanted to do a CT of her neck but eventually planned on surgery as well. Patient states today at work she was walking down the [employer] and her hair bangs were in her face. Patient states she whipped her neck to try to get the bangs out of her face and immediately became dizzy and blacked out . She states this is the same symptoms she has been having but she has never fully lost consciousness before. She states she knows she has a broken screw in her neck. She has never been evaluated by neurology for dizziness or presyncopal feelings. She has never had cardiology evaluation. Patient denies ever having chest pain, shortness of breath, difficulty breathing, palpitations. She does have chronic/intermittent radicular symptoms into bilateral UEs. She has not noticed any weakness. Denies headache. complaint: neck pain and neck injury Place: home and work Severity: moderate and similar to prior neck pain Quality: burning and aching Duration: constant Associated symptoms: Denies headache(s) or nausea Treatments prior to arrival: none Related Data Home Medications ?Medication ?Instructions ?Recorded ?Confirmed [id number] 45 mg-folic cap PO 10/22/23 acid 800 mcg-vit K 120 mcg capsule (Bariatric Multivitamins) Previous Rx's ?Medication ?Instructions ?Recorded methocarbamol 500 mg tablet 500 mg PO Q8H PRN muscle s pasm 30 10/22/23 days #90 tabs alprazolam 0.25 mg tablet 0.25 mg PO BID PRN anxiety 3 0 days 08/15/24 #30 tabs valacyclovir 1 gram tablet See Rx Instructions PO ARIC Y PRN 08/15/24 As needed 30 days #30 tabs citalopram 10 mg tablet See Rx Instructions .Route 0 01/10/25 .COMPLEX 90 days #90 tabs Allergies Allergy/AdvReac Type Severity Reaction Status Date / Time clindamycin Allergy ALGY-Rash Verified 03/28/25 12:25 doxycycline Allergy ALGY-Rash Verified 03/28/25 12:25 Sulfa (Sulfonamide Allergy ALGY-Rash Verified 03/28/25 12:25 Antibiotics) prednisone AdvReac agitated Verified 03/28/25 12:25 Review of Systems 2 Const: Denies: fever(s), chills, body aches, fatigue or malaise Eyes: Denies: change in vision, blurry vision, photophobia, floaters or seeing flashes Card: Reports: syncope and pre-syncope; Denies: chest pain, palpitations, irregular heart rhythm, edema, swelling of feet/ankles, lightheadedness, dyspnea on exertion, orthopnea, leg pain with exertion or acrocyanosis Resp: Denies: dyspnea, productive cough or pain on inspiration GI: Denies: abdominal pain, nausea, vomiting, heartburn or diarrhea : Denies: flank pain or dysuria Musc: Reports: neck pain; Denies: back pain, extremity pain, extremity swelling, joint pain, joint swelling, joint redness, joint warmth, joint stiffness, muscle cramps or muscle weakness Skin/Breast: Denies: rash Neuro: Denies: headache(s), weakness in extremities, confusion, behavioral changes, Slurred speech present or seizure-like activity PFSH ED 2 PFSH: Medical History DDD (degenerative disc disease), cervical Primary osteoarthritis involving multiple joints Heel spur Left Foot HSV infection Hyperparathyroidism Yeast infection involving the vagina and surrounding area Lesion of perianal area Vulval lesion Osteoarthritis of foot, left Vitamin D deficiency Anemia UTI symptoms Dental infection Upper respiratory infection Muscle spasm Chest pain Acute bacterial sinusitis Joint pain Lower respiratory infection Flu-like symptoms Vaginal yeast infection Obesity (BMI 35.0-39.9 without comorbidity) Anxiety and depression Post hysterectomy menopause Mixed hyperlipidemia H/O adenomatous polyp of colon Medication management Hypertension screen Pharyngitis GERD (gastroesophageal reflux disease) Breast cancer screening by mammogram Essential hypertension Yeast infection Shortness of breath Lumbar disc herniation Surgical History S/p total knee replacement, bilateral Status post gastric bypass for obesity S/P partial hysterectomy History of Ashley-en-Y gastric bypass History of gastric restrictive surgery H/O cervical spine surgery Social History Smoking and tobacco/nicotine status: unknown if used tobacco/nicotine Physical Exam 2 Const: COMMON NORMALS: no acute distress, average body habitus, patient oriented x3, no limitations, healthy appearing, alert and well nourished G ENERAL APPEARANCE: cooperative ORIENTATION/CONSCIOUSNESS: Yes awake, Yes oriented to person, Yes oriented to place and Yes oriented to time HENMT: COMMON NORMALS: normocephalic and atraumatic HEAD & SCALP: normal to inspection, normocephalic and atraumatic FACE & SINUS: normal facial exam and face symmetric Eye: COMMON NORMALS: Equal, round and reactive pupils present and EOMs intact bilaterally GENERAL EYE: appearance normal, both eyes and all related structures and normal light reflex PUPIL: Yes Equal, round and reactive pupils present DIRECT OPHTHALMOSCOPY: Yes normal light reflex Neck/C-Spine: COMMON NORMALS: no lymphadenopathy, supple and no meningeal signs CERVICAL SPINE: Yes pain with cervical ROM, Yes Cervical spine tenderness, No step off deformity, No Paracervical muscle tenderness, No Paracervical spasm, No Trapezius muscle tenderness and No Lhermitte's sign positive Chest: COMMONS NORMALS: normal inspection of the chest Resp: COMMON NORMALS: normal respiratory effort and clear to auscultation bilaterally AUSCULTATION: clear to auscultation bilaterally Cardio: COMMON NORMALS: regular rate and regular rhythm RATE: regular rate RHYTHM: regular rhythm GI: COMMON NORMALS: Normal to inspection, nondistended, normoactive bowel sounds present, Soft to palpation, non-tender, No hepatosplenomegaly present and no masses PALPATION: Yes Soft to palpation and Yes No hepatosplenomegaly present : COMMON NORMALS: Yes no CVA tenderness BLADDER/KIDNEY EXAM: Yes no CVA tenderness Back/Pelvis: COMMON NORMALS: no CVA tenderness and thoracic and lumbar spine normal to inspection Extremity: COMMON NORMALS: normal to inspection, full ROM and capillary refill normal GENERAL: Yes normal exam except as noted Neuro: JOANNE COMA SCALE: document GCS findings [place] coma scale eye opening: Spontaneous Joanne coma scale verbal response: Orientated Joanne coma scale motor response: Obey commands [place] coma scale total score: 15 COMMON NORMALS: patient oriented x3, moves all extremities, no focal motor deficits, no sensory deficits noted and gait normal SENSORIUM/ORIENTATION: Yes alert, Yes oriented to person, Yes oriented to place and Yes oriented to time MENINGEAL SIGNS: Yes no meningeal signs Skin: COMMON NORMALS: no rashes or lesions noted GENERAL SKIN EXAM: no rashes or lesions noted Course 2 Vital Signs: Vital signs: Vital Signs Temperature 98.2 F 04/28/25 14:48 Pulse Rate 88 04/28/25 14:48 Respiratory Rate 16 04/28/25 14:48 Blood Pressure 153/67 04/28/25 14:48 Pulse Oximetry 99 04/28/25 14:48 Oxygen Delivery Me thod Room Air 04/28/25 10:53 MDM - Neck Pain/Injury Medical Decision Making Patient here for continued neck pain as well as intermittent episodes of dizziness/lightheadedness and presyncopal feelings. These reportedly have been present for 6 to 8 months. She has been seen by Dr. Jiménez as well as neurosurgery both of which are recommending surgery. She had an episode today with neck movement that reportedly caused her to blackout. Blood work obtained today is unremarkable. CT cervical/CTA neck obtained. She has a normal CTA. CT cervical spine showing known fracture of her orthopedic screws. At this time patient feels comfortable going home and plan will be to follow up with neurosurgery to schedule surgery. Differential Diagnosis Likely disc disorder of cervical region, whiplash injury to neck, closed subluxation of cervical spine, fracture of cervical spine without lesion of spinal cord, cervical radiculopathy, vertebral artery dissection and strain of neck muscle Medical Records I reviewed the patient's medical records. Lab Data I reviewed the patient's lab results. 04/28/25 11:55 04/28/25 11:55 Radiology Impressions Chest X-Ray 04/28/25 11:22 Impression: Negative chest. Cervical Spine CT 04/28/25 12:22 Impression: 1. Anterior cervical disc fusion C4-C6. 2. Fracture of the inferior orthopedic screws at C6 with slight anterior displacement of the fusion plate. Neck CTA 04/28/25 12:22 Impression: Normal carotid and vertebral artery circulation. Laboratory Results WBC 7.47 10^3/uL (3.29-11.43) 04/28/25 11:55 RBC 4.46 10^6/uL (3.85-5.65) 04/28/25 11:55 Hgb 12.90 g/dL (11.27-16.99) 04/28/25 11:55 Hct 39.6 % (36-47) 04/28/25 11:55 MCV 88.8 fl (85-98) 04/28/25 11:55 MCH 28.9 pg (27-33) 04/28/25 11:55 MCHC 32.6 g/dL (30-55) 04/28/25 11:55 RDW 12.7 % (12.1-15.1) 04/28/25 11:55 Plt Count 202 10^3/cmm (157-399) 04/28/25 11:55 MPV 11.2 fL (7.4-10.4) H 04/28/25 11:55 Neut % (Auto) 53.9 % 04/28/25 11:55 Lymph % (Auto) 38.4 % 04/28/25 11:55 [place] % (Auto) 5.4 % 04/28/25 11:55 Eos % (Auto) 1.3 % 04/28/25 11:55 Baso % (Auto) 0.7 % 04/28/25 11:55 Neut # (Auto) 4.03 10^3/uL (1.8-7.7) 04/28/25 11:55 Lymph # (Auto) 2.9 10^3/uL (0.8-4.8) 04/28/25 11:55 [place] # (Auto) 0.4 10^3/uL (0.2-0.9) 04/28/25 11:55 Eos # (Auto) 0.1 10^3/uL (0.0-0.8) 04/28/25 11:55 Baso # (Auto) 0.1 10^3/uL (0.0-0.1) 04/28/25 11:55 Nucleated RBC % (auto) 0 % 04/28/25 11:55 Nucleated RBCs # 0.0 /100WBC 04/28/25 11:55 Sodium 141 mmol/L (136-145) 04/28/25 11:55 Potassium 4.0 mmol/L (3.5-5.1) 04/28/25 11:55 Chloride 103 mmol/L (98-107) 04/28/25 11:55 Carbon Dioxide 26 mmol/L (22-29) 04/28/25 11:55 Anion Gap 16.0 (5-19) 04/28/25 11:55 BUN 11 mg/dL (6-20) 04/28/25 11:55 Creatinine 0.8 mg/dL (0.5-0.9) 04/28/25 11:55 GFR Calculation 73.9 mL/min (90-130) L 04/28/25 11:55 Glucose 89 mg/dL (65-115) 04/28/25 11:55 Calculated Osmolality 291 mOsm/kg (285-295) 04/28/25 11:55 Calcium 9.1 mg/dL (8.5-10.5) 04/28/25 11:55 Total Bilirubin 0.4 mg/dL (0.15-1.2) 04/28/25 11:55 AST 22 U/L (0-32) 04/28/25 11:55 ALT 19 U/L (0-33) 04/28/25 11:55 Alkaline Phosphatase 109 U/L (35-105) H 04/28/25 11:55 Total Protein 6.7 g/dL (6.6-8.7) 04/28/25 11:55 Albumin 4.3 g/dL (3.5-5.2) 04/28/25 11:55 Globulin 2.4 g/dL (1.3-4.6) 04/28/25 11:55 Urine Color Yellow (Yellow) 04/28/25 10:21 Urine Appearance Clear (CLEAR) 04/28/25 10:21 Urine pH 6.5 (5-7) 04/28/25 10:21 Ur Specific [place] 1.007 (1.005-1.030) 04/28/25 10:21 Urine Protein Negative (Negative) 04/28/25 10:21 Urine Glucose (UA) Negative (Normal) 04/28/25 10:21 Urine Ketones Negative (Negative) 04/28/25 10:21 Urine Blood Negative (Negative) 04/28/25 10:21 Urine Nitrate Negative (Negative) 04/28/25 10:21 Urine Bilirubin Negative (Negative) 04/28/25 10:21 Urine Urobilinogen 0.2 mg/dL (Negative) 04/28/25 10:21 Ur Leukocyte Esterase 2+ (Negative) A 04/28/25 10:21 Urine RBC 0-2 /hpf (0-2) 04/28/25 10:21 Urine WBC 0-5 /hpf (0-5) 04/28/25 10:21 Ur Squamous Epith Cells 0-5 /hpf (0-5) 04/28/25 10:21 Amorphous Sediment Not Reportable 04/28/25 10:21 Urine Bacteria None seen /hpf (NONE) 04/28/25 10:21 Hyaline Casts 0.40 /lpf 04/28/25 10:21 All radiology interpretation(s) finalized by discharge Discharge Plan Discharge Patient Disposition: Home Clinical Impression: Neck pain Syncope Qualifiers: Syncope type: unspecified Qualified Code(s): R55 - Syncope and collapse Condition: Stable Prescriptions: No Action Bariatric Multivitamins 45 mg iron- 800 mcg-120 mcg capsule PO methocarbamol 500 mg tablet 500 mg PO Q8H PRN (Reason: muscle spasm) 30 Days Qty: 90 0RF citalopram 10 mg tablet See Rx Instructions .ROUTE .COMPLEX 90 Days Qty: 90 1RF Dose Instruction: TAKE 1 TABLET BY MOUTH EVERY DAY FOR 30 DAYS Rx Instructions: TAKE 1 TABLET BY MOUTH EVERY DAY FOR 30 DAYS alprazolam 0.25 mg tablet 0.25 mg PO BID PRN (Reason: anxiety) 30 Days Qty: 30 0RF valacyclovir 1 gram tablet See Rx Instructions PO DAILY PRN (Reason: As needed) 30 Days Qty: 30 5RF Rx Instructions: Take 1 tab daily for 5 days with outbreak and PRN orally daily PRN; Discharge Orders: Discharge ED (Routine); Ordered 04/28/25 Ordered By: Minerva Rosario Referrals: ELISEO Chau, BIOLOGY INTERN [Primary Care Provider, Family Practice] Patient Instructions: Patient Portal & Ketty Instructions Activity Restrictions/Additional Instructions: As we discussed, plan will be to follow-up with your neurosurgery team so they can plan on surgical intervention. You may return to the emergency department at anytime for any further concerns you may have. Print Language: Serbian Coding Level of Care Code ED Keg Varnisher for Jorge A Scherer
[2025-04-28 12:26] LABS: Alanine Aminotransferase 19 U/L (0-33); Albumin Level 4.3 g/dL (3.5-5.2); Alkaline Phosphatase 109 U/L (35-105); Anion Gap 16.0 (5-19); Aspartate Amino Transferase 22 U/L (0-32); Blood Urea Nitrogen 11 mg/dL (6-20); Calcium 9.1 mg/dL (8.5-10.5); Carbon Dioxide 26 mmol/L (22-29); Chloride 103 mmol/L (98-107); Globulin 2.4 g/dL (1.3-4.6); Glucose 89 mg/dL (65-115); Osmolality Calculated 291 mOsm/kg (285-295); Potassium 4.0 mmol/L (3.5-5.1); Sodium 141 mmol/L (136-145); Total Protein 6.7 g/dL (6.6-8.7)
[2025-04-28] MEDS: iohexol 350 mg/mL 500 mL Btl (per mL) IV (12:59)
[2025-04-28 13:00] VITALS: BP 153/64; PULSE 83; RESP 16; O2SAT 98
[2025-04-28 14:48] VITALS: BP 153/67; PULSE 88; RESP 16; TEMP 36.8; O2SAT 99
== END 2025-04-28 14:51 | disposition home or self-care (01) ==
PROVIDERS: Emergency Provider Physician Assistant; PCP Nurse Practitioner Family
DX: M54.2 Cervicalgia (principal); R55 Syncope and collapse; E78.2 Mixed hyperlipidemia; I10 Essential (primary) hypertension
CPT/HCPCS: 36415; 70498; 71045; 72125; 80053; 81001; 85025; 93005; 99285